=== PATIENT | female | born 1985 ===

== ENCOUNTER → 2019-03-04 | Outpatient (CLI) | payer SELFPAY ==
[~2019-03-04] MED LIST: ASPI81CH PO; CEPH500 PO; CODACE30 PO; DIPH50 PO; FLUO20 PO; HYDACE5 PO; NAPR500 PO; OXYACE5T PO; OXYM.05NI; PHENA200 PO; PRED10 PO; SULTRIDS PO; VERA120 PO
== END | disposition home or self-care (01) ==
LOC: LAB EV 18:39 → LAB SHORT 18:39
DX: N39.0 Urinary tract infection, site not specified (principal)
CPT/HCPCS: 87077; 87086; 87186

== ENCOUNTER → 2022-01-09 | Outpatient (CLI) | payer SELFPAY ==
[2022-01-11 11:11] LABS: HPV 16 Negative (Negative); HPV 18 Negative (Negative); HPV OTHER HR TYPES Negative (Negative)
== END | disposition home or self-care (01) ==
LOC: LAB SHORT 12:11
PROVIDERS: Physician Assistant
DX: Z01.419 Encounter for gynecological examination (general) (routine) without abnormal findings (principal)
CPT/HCPCS: 87624; G0145